=== PATIENT | male | born 1945 | race Caucasian/White ===

== ENCOUNTER 2021-02-27 14:27 | Outpatient (REF) | payer OTHER, MEDICARE, SELFPAY ==
--- NOTE | ~2021-02-27 | XR_ITS ---
EXAMINATION: XR ABDOMEN KUB CLINICAL INDICATION: Kidney stone COMPARISON: None TECHNIQUE: AP view of the abdomen. FINDINGS: There is a 3 mm density projecting over the mid to lower pole the right kidney suggestive of a stone. There is a 0.3 x 1.4 cm linear vertically oriented density which projects over the right L5 transverse process and right side of the sacrum. Atypical appearance of right distal ureteral stone cannot be excluded. No other stone is seen. Bowel gas pattern is normal. There are degenerative changes of the spine and scoliosis. XR/XR KUB IMPRESSION: 3 mm right lower pole renal stone. 0.3 x 1.4 cm vertically oriented density projecting over the right L5 transverse process and sacrum. It is difficult to exclude a right distal ureteral stone.
== END 2021-02-27 14:28 | disposition home or self-care (01) ==
LOC: HO.XRAY 14:27
PROVIDERS: Visit Provider Urology
DX: N20.0 Calculus of kidney (principal)
CPT/HCPCS: 74018

== ENCOUNTER → 2021-03-05 09:49 | Outpatient (BNVA) | payer MEDICARE, OTHER, SELFPAY | PROVIDERS: PCP Internal Medicine | DX: Z13.89 Encounter for screening for other disorder (principal) | CPT/HCPCS: Q3014 ==

== ENCOUNTER 2021-08-14 10:05 | Outpatient (REF) | payer MEDICARE, SELFPAY ==
--- NOTE | ~2021-08-14 | US_ITS ---
EXAMINATION: US RETROPERITONEAL LIMITED (RENAL ONLY) CLINICAL INFORMATION: Calculus of kidney. COMPARISON: XR abdomen KUB 02/27/2021. TECHNIQUE: Real-time imaging of the kidneys. FINDINGS: RIGHT KIDNEY: 11.4 x 6.9 x 5.8 cm (SAG x AP x TRV). The kidney is normal in size, contour, and echogenicity. Renal cortical thickness is normal. No calculi or focal parenchymal lesions. No hydronephrosis. LEFT KIDNEY: 11.2 x 5.2 x 4.5 cm (SAG x AP x TRV). The kidney is normal in size, contour, and echogenicity. Renal cortical thickness is normal. No calculi or focal parenchymal lesions. No hydronephrosis. US/US renal BI IMPRESSION: Normal renal ultrasound study. No nephrolithiasis or hydronephrosis identified..
== END 2021-08-14 10:06 | disposition home or self-care (01) ==
LOC: HO.US 10:05
DX: N20.0 Calculus of kidney (principal)
CPT/HCPCS: 76775

== ENCOUNTER → 2021-09-03 08:51 | Outpatient (BNVA) | payer MEDICARE, SELFPAY | PROVIDERS: PCP Internal Medicine | DX: N20.0 Calculus of kidney (principal) | CPT/HCPCS: 99212 ==

== ENCOUNTER 2022-07-25 15:40 | Outpatient (REF) | payer MEDICARE, SELFPAY ==
--- NOTE | ~2022-07-25 | US_ITS ---
EXAMINATION: US RETROPERITONEAL LIMITED (RENAL ONLY) CLINICAL INFORMATION: Calculus of kidney. COMPARISON: Renal ultrasound 08/14/2021. TECHNIQUE: Real-time imaging of the kidneys. FINDINGS: RIGHT KIDNEY: 10.5 x 5.8 x 4.9 cm (SAG x AP x TRV). The kidney is normal in size, contour, and echogenicity. Renal cortical thickness is normal. No focal parenchymal lesions or hydronephrosis. 3 mm lower pole and 4 mm upper pole nonobstructing calculi. LEFT KIDNEY: 10.3 x 4.6 x 3.8 cm (SAG x AP x TRV). The kidney is normal in size, contour, and echogenicity. Renal cortical thickness is normal. No hydronephrosis. 8 mm simple cyst in the mid to upper pole. No follow-up imaging is recommended. 4 mm upper pole, 4 mm mid kidney, 5 mm lower pole nonobstructing calculi. US/US renal BI IMPRESSION: New/newly apparent bilateral renal calculi compared to prior ultrasound 08/14/2021. No hydronephrosis.
== END 2022-07-25 15:41 | disposition home or self-care (01) ==
LOC: HO.US 15:40
PROVIDERS: PCP Internal Medicine; Visit Provider Nurse Practitioner Family
DX: N20.0 Calculus of kidney (principal)
CPT/HCPCS: 76775

== ENCOUNTER 2022-08-28 09:49 | Outpatient (REF) | payer MEDICARE, SELFPAY ==
--- NOTE | ~2022-08-28 | XR_ITS ---
EXAMINATION: XR ABDOMEN KUB CLINICAL INDICATION: Renal calculus. COMPARISON: 02/27/2021 and ultrasound of 07/25/2022. TECHNIQUE: AP view of the abdomen. FINDINGS: The bowel gas pattern is normal with no evidence of ileus or obstruction. There is scoliosis of the lumbar spine convex left. There is degenerative disc disease seen at the L4-L5 and L5-S1 disc space levels as well as left-sided facet arthropathy at L4-L5 and L5-S1. There is a 5 mm calcification seen overlying the expected location of the lower pole of the right kidney. No other radiopaque calculi are identified on this plain film study. No calculi along the expected paths of the ureters identified. There is again noted to be a curvilinear calcification about the right side of the L5 transverse process which likely represent vascular calcification. Psoas margins intact. XR/XR KUB IMPRESSION: 5 mm calcification seen overlying expected location lower pole of the right kidney. Other calculi are not identified on this plain film study.
== END 2022-08-28 09:50 | disposition home or self-care (01) ==
LOC: HO.XRAY 09:49
PROVIDERS: PCP Internal Medicine; Visit Provider Nurse Practitioner Family
DX: N20.0 Calculus of kidney (principal)
CPT/HCPCS: 74018

== ENCOUNTER → 2022-09-03 09:49 | Outpatient (BNVA) | payer MEDICARE, SELFPAY | PROVIDERS: PCP Internal Medicine; Visit Provider Nurse Practitioner Family ==

== ENCOUNTER 2023-02-27 12:37 | Outpatient (REF) | payer MEDICARE, SELFPAY ==
--- NOTE | ~2023-02-27 | US_ITS ---
EXAMINATION: US RETROPERITONEAL LIMITED (RENAL ONLY) CLINICAL INFORMATION: Calculus of kidney. COMPARISON: Ultrasound retroperitoneal limited 07/25/2022 and 08/14/2021. TECHNIQUE: Real-time imaging of the kidneys. FINDINGS: RIGHT KIDNEY: 12.3 x 5.9 x 5.2 cm (SAG x AP x TRV). The kidney is normal in size, contour, and echogenicity. Renal cortical thickness is normal. No focal parenchymal lesions or hydronephrosis. 5 mm lower pole renal stone, previously 3 mm slightly increased in size. A previously seen upper pole renal stone was not identified. LEFT KIDNEY: 11.8 x 5.2 x 4.9 cm (SAG x AP x TRV). The kidney is normal in size, contour, and echogenicity. Renal cortical thickness is normal. No focal parenchymal lesions or hydronephrosis. Nonobstructing stones measuring up to 6 mm in the upper and lower poles, the largest increased in size from prior, previously 5 mm and 4 mm respectively. US/US renal BI IMPRESSION: Bilateral nonobstructing renal stones measuring up to 6 mm in the left kidney, the largest increased in size from prior. A previously seen right upper pole renal stone was not identified.
--- NOTE | ~2023-02-27 | XR_ITS ---
EXAMINATION: XR ABDOMEN KUB CLINICAL INDICATION: Calculus of kidney 02/27/2023 ultrasound TECHNIQUE: AP view of the abdomen. FINDINGS: 5 mm calculus identified overlying the right renal shadow. Tiny adjacent calculi identified overlying the left lower renal pole. Nonspecific bowel pattern. Solid visceral outlines are partially obscured. Mild left base atelectasis. Levoscoliosis. XR/XR KUB IMPRESSION: Bilateral renal calculi.
== END 2023-02-27 12:38 | disposition home or self-care (01) ==
LOC: HO.US 12:37
PROVIDERS: PCP Internal Medicine; Visit Provider Nurse Practitioner Family
DX: N20.0 Calculus of kidney (principal)
CPT/HCPCS: 74018; 76775

== ENCOUNTER 2023-03-03 14:02 | Outpatient (AMB) | payer MEDICARE, SELFPAY ==
--- NOTE | 2023-03-03 14:06 | MHC.OFFVIS ---
Intake Intake Visit Reasons: 6m/US/KUB(set) Intake Note: Patient is present for follow up nephrolithiasis (x-ray 02/27/23) (imaging 02/27/23) Urology Medications: Vitamin B6 Blood Thinner: aspirin Baggageman Required: No Accompanied by: Self / Same As Patient Allergies No Known Allergies Allergy (Verified 03/04/23 01:26) Medication List - Last Reconciled 03/04/23 by BABITA Alcantar- aspirin 81 mg PO DAILY atorvastatin 40 mg PO DAILY losartan 50 mg PO DAILY primidone 0 mg PO pyridoxine (vitamin B6) 100 mg PO DAILY 90 days HPI HPI Comments History of Present Illness Details Ernie is a 77-year-old male patient of Dr. Wiley. He has a past medical history diverticulitis, hyperlipidemia, hypertension, hearing loss, and nephrolithiasis. He presents to the office today for follow-up of his nephrolithiasis. Recent renal imaging results reviewed with the patient today. Right kidney with no lesions or hydronephrosis. 5mm lower pole renal stone which is slightly increased in size from previous study. A previously seen upper pole renal stone was not identified. Left kidney with no lesions or hydronephrosis. Nonobstructing stones measuring up to 6 mm in the upper and lower poles, the largest increased in size from prior, previously 5 mm and 4 mm respectively. KUB results reviewed with the patient today. 5 mm calculus identified overlying the right renal shadow. Tiny adjacent calculi identified overlying the left lower renal pole. When asked patient denies any bothersome urinary issues or concerns at this time. When asked patient reports compliance with vitamin B6 and plenty of water daily. Discussed surveillance monitoring versus surgical intervention regarding multiple nonobstructing bilateral renal calculi. He discusses having seeked emergency room care at [facility] over the summer at which time he underwent CT abdominal pain he had be experiencing and was told no stones were noted however he does not believe this to be true. Will obtain imaging for further assessment evaluation per patient request. Discussed given recurrent nephrolithiasis 24 hour urine collection and labs could be helpful with stone burden and management of nephrolithiasis however patient declines at this time. He denies any issues with his urination at this time. He otherwise offers no issues or concerns at this time. When asked he denies hematuria, flank pain, fever, and or chills. [facility] Medical History Diverticulitis Hyperlipidemia HTN (hypertension) Hearing loss History of kidney stones Nephrolithiasis Surgical History History of hernia repair Review of Systems Const Reports as per HPI Eyes Reports no additional complaints ENT Reports as per HPI Card Reports as per HPI Resp Reports no additional complaints GI Reports as per HPI Reports as per HPI Musc Reports no additional complaints Neuro Reports no additional complaints Psych Reports no additional complaints Endo Reports no additional complaints Daniel/Lymph Reports no additional complaints Aller/Immun Reports no additional complaints Physical Exam Const General: cooperative, healthy appearing, comfortable, no acute distress, well developed, alert and awake Orientation/consciousness: patient oriented x3 Limitations: no limitations HEENT Head: Yes normal to inspection, Yes normocephalic and Yes atraumatic Ears: hearing grossly normal bilaterally Eyes General: appearance normal, both eyes and all related structures Neck Neck: Yes normal visual inspection and Yes trachea midline Chest Chest palpation & inspection: normal inspection of the chest Resp Effort & Inspection: normal respiratory effort and able to speak in complete sentences Cardio Rate: regular rate GI Inspection: Yes normal to inspection General: Yes no CVA tenderness Back/Spine/Pelvis Back: no CVA tenderness Skin General skin exam: no rashes or lesions noted Neuro General: patient oriented x3 Extrem General: Yes normal to inspection Psych Appearance: grossly normal and well kempt Mental Status: mental status grossly normal Speech and movement: Normal speech and movement present and Clear speech present Affect: normal affect Attitude: cooperative Thought process: Normal thought process present Thought content: Normal thought content present Insight: Fair insight present (Psych) Judgement: Fair judgement present (Psych) Results AMB Urinalysis, Automated UA Leukoctes 0 Laina/uL Last Edit by Jyothi Bashir on 03/03/23 14:46 UA Nitrite Negative Last Edit by Jyothi Bashir on 03/03/23 14:46 UA Urobilinogen 0.2 mg/dL Last Edit by Jyothi Bashir on 03/03/23 14:46 UA Protein 0 mg/dL Last Edit by Jyothi Bashir on 03/03/23 14:46 UA pH 7.0 Last Edit by Jyothi Bashir on 03/03/23 14:46 UA Blood 0 Preston/uL Last Edit by Jyothi Bashir on 03/03/23 14:46 UA Specific [place] 1.015 Last Edit by Jyothi Bashir on 03/03/23 14:46 UA Ketone Negative Last Edit by Jyothi Bashir on 03/03/23 14:46 UA Bilirubin 0 mg/dL Last Edit by Jyothi Bashir on 03/03/23 14:46 UA Glucose 0 mg/dL Last Edit by Jyothi Bashir on 03/03/23 14:46 Results Reviewed Results Reviewed: Laboratory Last Values Urine pH (Auto) 7.0 03/03/23 14:13 Specific [place] (Auto) 1.015 03/03/23 14:13 Urine Protein (Auto) 0 mg/dL 03/03/23 14:13 Glucose (UA)(Auto) 0 mg/dL 03/03/23 14:13 Urine Ketones (Auto) Negative 03/03/23 14:13 Urine Blood (Auto) 0 Preston/uL 03/03/23 14:13 Urine Nitrite (Auto) Negative 03/03/23 14:13 Urine Bilirubin (Auto) 0 mg/dL 03/03/23 14:13 Urine Urobilinogen (Auto) 0.2 mg/dL 03/03/23 14:13 Leukocyte Esterase (Auto) 0 Laina/uL 03/03/23 14:13 Date of Service: 02/27/23 EXAMINATION: US RETROPERITONEAL LIMITED (RENAL ONLY) FINDINGS: RIGHT KIDNEY: 12.3 x 5.9 x 5.2 cm (SAG x AP x TRV). The kidney is normal in size, contour, and echogenicity. Renal cortical thickness is normal. No focal parenchymal lesions or hydronephrosis. 5 mm lower pole renal stone, previously 3 mm slightly increased in size. A previously seen upper pole renal stone was not identified. LEFT KIDNEY: 11.8 x 5.2 x 4.9 cm (SAG x AP x TRV). The kidney is normal in size, contour, and echogenicity. Renal cortical thickness is normal. No focal parenchymal lesions or hydronephrosis. Nonobstructing stones measuring up to 6 mm in the upper and lower poles, the largest increased in size from prior, previously 5 mm and 4 mm respectively. IMPRESSION: Bilateral nonobstructing renal stones measuring up to 6 mm in the left kidney, the largest increased in size from prior. A previously seen right upper pole renal stone was not identified. Date of Service: 02/27/23 EXAMINATION: XR ABDOMEN KUB CLINICAL INDICATION: Calculus of kidney 02/27/2023 ultrasound TECHNIQUE: AP view of the abdomen. FINDINGS: 5 mm calculus identified overlying the right renal shadow. Tiny adjacent calculi identified overlying the left lower renal pole. Nonspecific bowel pattern. Solid visceral outlines are partially obscured. Mild left base atelectasis. Levoscoliosis. IMPRESSION: Bilateral renal calculi. Assessment & Plan Assessment & Plan (1) Nephrolithiasis: Code(s): N20.0 - Calculus of kidney Plan In office urinalysis results reviewed with the patient today; as noted above Recent renal imaging results reviewed with the patient today; as noted above. Recent KUB results reviewed with the patient today; as noted above. Patient denies any bothersome urinary issues or concerns at this time. Patient reports to be happy with current voiding parameters. Discussed and stressed the importance of drinking plenty of water daily. Discussed obtaining metabolic workup with 24 hour urine and labs however patient declines at this time. Will attempt to obtain CT for further assessment evaluation in continuity of care Continue vitamin B6 as discussed and prescribed. Renal ultrasound in 6 months. Follow-up in 6 months with imaging to be completed prior; or sooner with any issues, concerns, and or questions. Orders: Orders AMB Urinalysis Automated 03/03/23 Z13.9 - Encounter for screening, unspecified Patient Instructions: The patient had an opportunity to ask questions regarding the treatment plan. All questions were answered. Physical exam, labs, and imaging were discussed and reviewed in detail. As well as risks, benefits, and discussion of treatment choices. No major barriers to understanding were identified. The patient expressed understanding and agreement with the above treatment plan. The patient was made aware they should contact our office by phone for worsening of their current condition, the appearance of new symptoms, or with any questions or concerns. Compliance is encouraged with any medications and follow up testing that is ordered. It is a privilege to be allowed the opportunity to participate in? your urological care.? Again, if you have any questions or concerns If you have any questions or concerns please do not hesitate to contact me. The office is [phone]. This note is constructed using voice recognition software. While every effort has been made to ensure accuracy tax preparer errors may have been included. Yours sincerely, DAMEON Alcantar Coding Level of Care Code Est Pt Level 3 (60087) Diagnoses Nephrolithiasis N20.0
== END 2023-03-03 14:47 | disposition home or self-care (01) ==
PROVIDERS: PCP Internal Medicine; Visit Provider Nurse Practitioner Family
DX: N20.0 Calculus of kidney (principal)
CPT/HCPCS: 99213

== ENCOUNTER → 2023-03-03 14:02 | Outpatient (BNVA) | payer MEDICARE, SELFPAY | PROVIDERS: PCP Internal Medicine; Visit Provider Nurse Practitioner Family | DX: N20.0 Calculus of kidney (principal) | CPT/HCPCS: 81003; 99212 ==

== ENCOUNTER 2023-08-04 14:02 | Outpatient (REF) | payer MEDICARE, SELFPAY ==
--- NOTE | ~2023-08-04 | US_ITS ---
EXAMINATION: US RETROPERITONEAL LIMITED (RENAL ONLY) CLINICAL INFORMATION: Calculus of kidney. COMPARISON: Ultrasound renal 02/27/2023 and 07/25/2022. TECHNIQUE: Real-time imaging of the kidneys. FINDINGS: RIGHT KIDNEY: 12.0 x 5.6 x 5.1 cm (SAG x AP x TRV). The kidney is normal in size, contour, and echogenicity. Renal cortical thickness is normal. No focal parenchymal lesions or hydronephrosis. 5 mm calculus in the lower pole. 6 mm calculus in the mid kidney. LEFT KIDNEY: 11.1 x 5.0 x 4.0 cm (SAG x AP x TRV). The kidney is normal in size, contour, and echogenicity. Renal cortical thickness is normal. No focal parenchymal lesions or hydronephrosis. 7 mm calculus in the upper pole. US/US renal BI IMPRESSION: Bilateral nonobstructing renal calculi. No hydronephrosis.
== END 2023-08-04 14:03 | disposition home or self-care (01) ==
LOC: HO.US 14:02
PROVIDERS: PCP Internal Medicine; Visit Provider Nurse Practitioner Family
DX: N20.0 Calculus of kidney (principal)
CPT/HCPCS: 76775

== ENCOUNTER 2023-09-02 13:40 | Outpatient (AMB) | payer MEDICARE, SELFPAY ==
--- NOTE | 2023-09-02 14:00 | MHC.OFFVIS ---
Intake Visit Reasons: 6m/US(set) Intake Note: Patient presents today for follow up on: Nephrolithiasis and Ultrasound Results Imaging Complete: 08/04/23 Urology Medications: Vitamin B6 Blood Thinner: aspirin Transfer Specialist Required: No Accompanied by: Self / Same As Patient Allergies No Known Allergies Allergy (Verified 09/02/23 21:42) Medication List - Last Reconciled 09/02/23 by BABITA Alcantar- aspirin 81 mg PO DAILY atorvastatin 40 mg PO DAILY losartan 50 mg PO DAILY primidone 0 mg PO pyridoxine (vitamin B6) 100 mg PO DAILY 90 days HPI Comments Details: Ernie is a 78-year-old male patient of Dr. Wiley. He has a past medical history diverticulitis, hyperlipidemia, hypertension, hearing loss, and nephrolithiasis. He presents to the office today for follow-up of his nephrolithiasis. Recent renal imaging results reviewed with the patient today. Bilateral kidneys with no lesions or hydronephrosis. Right kidney with 5 mm and 6 mm calculus. Left kidney with 7 mm calculus in the upper pole. Patient discusses having seeked emergency room care at [facility] proximally 2 months ago for an episode of gross hematuria at which time he was told he had since passed a kidney stone. When asked he does report intermittent right-sided flank pain however does not find this bothersome. He reports episode of gross hematuria since subsided. In office urinalysis results reviewed with the patient today. No microscopic hematuria noted however pH 5.5. Discussed importance of fluid intake with history of nephrolithiasis. When asked he reports compliance with vitamin B6 as prescribed. He discusses his upcoming travel for a wedding. He otherwise denies urinary urgency, urinary frequency, incontinence, nocturia, dysuria, foul smelling urine, changes to urinary stream, flank pain, fever, and or chills. He is happy with his current voiding parameters. Discussed given recurrent nephrolithiasis 24 hour urine collection and labs could be helpful with stone burden and management of nephrolithiasis however patient declines at this time. He otherwise offers no issues or concerns at this time. [facility] Medical History Diverticulitis Hyperlipidemia HTN (hypertension) Hearing loss History of kidney stones Nephrolithiasis Surgical History History of hernia repair Review of Systems Const Reports as per HPI Eyes Reports no additional complaints ENT Reports as per HPI Card Reports as per HPI Resp Reports no additional complaints GI Reports as per HPI Reports as per HPI Musc Reports no additional complaints Neuro Reports no additional complaints Psych Reports no additional complaints Endo Reports no additional complaints Daniel/Lymph Reports no additional complaints Aller/Immun Reports no additional complaints Physical Exam Const General: cooperative, healthy appearing, comfortable, no acute distress, well developed, alert and awake Orientation/consciousness: patient oriented x3 Limitations: no limitations HEENT Head: Yes normal to inspection, Yes normocephalic and Yes atraumatic Ears: hearing grossly normal bilaterally Eyes General: appearance normal, both eyes and all related structures Neck Neck: Yes normal visual inspection and Yes trachea midline Chest Chest palpation & inspection: normal inspection of the chest Resp Effort & Inspection: normal respiratory effort and able to speak in complete sentences Cardio Rate: regular rate GI Inspection: Yes normal to inspection General: Yes no CVA tenderness Back/Spine/Pelvis Back: no CVA tenderness Skin General skin exam: no rashes or lesions noted Neuro General: patient oriented x3 Extrem General: Yes normal to inspection Psych Appearance: grossly normal and well kempt Mental Status: mental status grossly normal Speech and movement: Normal speech and movement present and Clear speech present Affect: normal affect Attitude: cooperative Thought process: Normal thought process present Thought content: Normal thought content present Insight: Fair insight present (Psych) Judgement: Fair judgement present (Psych) Results AMB Urinalysis, Automated UA Leukoctes 0 Laina/uL Last Edit by [employer] on 09/02/23 14:18 UA Nitrite Negative Last Edit by [employer] on 09/02/23 14:18 UA Urobilinogen 0.2 mg/dL Last Edit by [employer] on 09/02/23 14:18 UA Protein 15 mg/dL Last Edit by [employer] on 09/02/23 14:18 UA pH 5.5 Last Edit by [employer] on 09/02/23 14:18 UA Blood 0 Preston/uL Last Edit by [employer] on 09/02/23 14:18 UA Specific [place] 1.025 Last Edit by [employer] on 09/02/23 14:18 UA Ketone Positive Last Edit by Jyothi Bashir on 09/02/23 14:18 UA Bilirubin 0 mg/dL Last Edit by Jyothi Bashir on 09/02/23 14:18 UA Glucose 0 mg/dL Last Edit by Jyothi Bashir on 09/02/23 14:18 Results Reviewed Results Reviewed: Laboratory Last Values Urine pH (Auto) 5.5 09/02/23 14:06 Specific [place] (Auto) 1.025 09/02/23 14:06 Urine Protein (Auto) 15 mg/dL 09/02/23 14:06 Glucose (UA)(Auto) 0 mg/dL 09/02/23 14:06 Urine Ketones (Auto) Positive 09/02/23 14:06 Urine Blood (Auto) 0 Preston/uL 09/02/23 14:06 Urine Nitrite (Auto) Negative 09/02/23 14:06 Urine Bilirubin (Auto) 0 mg/dL 09/02/23 14:06 Urine Urobilinogen (Auto) 0.2 mg/dL 09/02/23 14:06 Leukocyte Esterase (Auto) 0 Laina/uL 09/02/23 14:06 Date of Service: 08/04/23 EXAMINATION: US RETROPERITONEAL LIMITED (RENAL ONLY) FINDINGS: RIGHT KIDNEY: 12.0 x 5.6 x 5.1 cm (SAG x AP x TRV). The kidney is normal in size, contour, and echogenicity. Renal cortical thickness is normal. No focal parenchymal lesions or hydronephrosis. 5 mm calculus in the lower pole. 6 mm calculus in the mid kidney. LEFT KIDNEY: 11.1 x 5.0 x 4.0 cm (SAG x AP x TRV). The kidney is normal in size, contour, and echogenicity. Renal cortical thickness is normal. No focal parenchymal lesions or hydronephrosis. 7 mm calculus in the upper pole. IMPRESSION: Bilateral nonobstructing renal calculi. No hydronephrosis. Assessment & Plan Assessment & Plan (1) Nephrolithiasis: Code(s): N20.0 - Calculus of kidney Category: Medical (2) Gross hematuria: Code(s): R31.0 - Gross hematuria Category: Medical Plan In office urinalysis results reviewed with the patient today; as noted above. Recent renal imaging results reviewed with the patient today; as noted above. Will attempt to obtain previous ER records from [place] for continuity of care. Discussed at length potential causes of nephrolithiasis. Discussed, educated, and stressed the importance of drinking plenty of water daily. Discussed further workup to include CT KUB versus surveillance monitoring. Continue vitamin B6. Discussed further metabolic workup to include 24 hour urine collection and labs; patient states he will think about this. Will follow-up in 3 months; or sooner with any issues, concerns, and or questions. Orders: Orders AMB Urinalysis Automated Today Z13.9 - Encounter for screening, unspecified Patient Instructions: The patient had an opportunity to ask questions regarding the treatment plan. All questions were answered. Physical exam, labs, and imaging were discussed and reviewed in detail. As well as risks, benefits, and discussion of treatment choices. No major barriers to understanding were identified. The patient expressed understanding and agreement with the above treatment plan. The patient was made aware they should contact our office by phone for worsening of their current condition, the appearance of new symptoms, or with any questions or concerns. Compliance is encouraged with any medications and follow up testing that is ordered. It is a privilege to be allowed the opportunity to participate in? your urological care.? Again, if you have any questions or concerns If you have any questions or concerns please do not hesitate to contact me. The office is [phone]. This note is constructed using voice recognition software. While every effort has been made to ensure accuracy clinical operations specialist errors may have been included. Yours sincerely, DAMEON Alcantar Coding Level of Care Code Est Pt Level 4 (53859) Complex EM visit Add On G2211 Diagnoses Nephrolithiasis N20.0 Gross hematuria R31.0 Time Spent (min) 35
== END 2023-09-02 14:34 | disposition home or self-care (01) ==
PROVIDERS: PCP Internal Medicine; Visit Provider Nurse Practitioner Family
DX: N20.0 Calculus of kidney (principal); R31.0 Gross hematuria; Z13.9 Encounter for screening, unspecified
CPT/HCPCS: 99214; G2211

== ENCOUNTER → 2023-09-02 13:40 | Outpatient (BNVA) | payer MEDICARE, SELFPAY | PROVIDERS: PCP Internal Medicine; Visit Provider Nurse Practitioner Family | DX: N20.0 Calculus of kidney (principal); R31.0 Gross hematuria | CPT/HCPCS: 81003; 99212 ==

== ENCOUNTER 2023-12-02 13:07 | Outpatient (AMB) | payer MEDICARE, SELFPAY ==
--- NOTE | 2023-12-02 13:07 | MHC.OFFVIS ---
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 Wiley. He has a past medical history diverticulitis, hyperlipidemia, hypertension, hearing loss, and nephrolithiasis. He was being followed up on today via telehealth for his history of nephrolithiasis. In discussion with the patient today he reports since his last office visit here approximately 3 months ago he believes he has passed a kidney stone from the right side as shortly after his last follow-up in office he started experiencing right-sided flank pain that has since subsided. He does not recall passing any fragments. He reports pain has since subsided and he has been doing well. He reports to be drinking plenty of water daily and has been compliant with vitamin B6 as prescribed. When asked he currently denies any bothersome urinary issues or concerns. He denies urinary urgency, urinary frequency, incontinence, nocturia, dysuria, foul smelling urine, changes to urinary stream, flank pain, fever, and or chills. He is happy with his current voiding parameters. Discussed given recurrent nephrolithiasis 24 hour urine collection and labs could be helpful with stone burden and management of nephrolithiasis however patient declines at this time. He otherwise offers no issues or concerns at this time. [facility] Medical History Diverticulitis Hyperlipidemia HTN (hypertension) Hearing loss History of kidney stones Nephrolithiasis Surgical History History of hernia repair Review of Systems Const Reports as per HPI Eyes Reports no additional complaints ENT Reports as per HPI Card Reports as per HPI Resp Reports no additional complaints GI Reports as per HPI Reports as per HPI Musc Reports no additional complaints Neuro Reports no additional complaints Psych Reports no additional complaints Endo Reports no additional complaints Daniel/Lymph Reports no additional complaints Aller/Immun Reports no additional complaints Physical Exam Const General: cooperative Orientation/consciousness: patient oriented x3 Resp Effort & Inspection: able to speak in complete sentences Neuro General: patient oriented x3 Psych Speech and movement: Clear speech present Attitude: cooperative Thought process: Normal thought process present Thought content: Normal thought content present Insight: Fair insight present (Psych) Judgement: Fair judgement present (Psych) Telehealth Telehealth Telehealth Platform: Telephone Location of provider rendering services: practice address Location of patient: address on file Patient Identification confirmed using: Name, : Yes Telehealth method: voice only Patient verbally consented to treatment: Yes Patient verbally consented to billing insurance company: Yes Patient informed of any privacy concerns related to visit: Yes Minutes spent on Phone/Video with Pt.: 15 Assessment & Plan Assessment & Plan (1) Nephrolithiasis: Code(s): N20.0 - Calculus of kidney Category: Medical (2) Gross hematuria: Code(s): R31.0 - Gross hematuria Category: Medical Plan Discussed at length potential causes of nephrolithiasis. Discussed, educated, and stressed the importance of drinking plenty of water daily. Will obtain renal ultrasound in 3 months. Continue vitamin B6. Discussed further metabolic workup to include 24 hour urine collection and labs; however patient declines at this time. Patient currently denies any bothersome urinary issues or concerns. He reports be happy with current voiding parameters. Will follow-up in 3 months; or sooner with any issues, concerns, and or questions. Orders: Orders US renal BI 3 Months N20.0 - Calculus of kidney Patient Instructions: The patient had an opportunity to ask questions regarding the treatment plan. All questions were answered. Physical exam, labs, and imaging were discussed and reviewed in detail. As well as risks, benefits, and discussion of treatment choices. No major barriers to understanding were identified. The patient expressed understanding and agreement with the above treatment plan. The patient was made aware they should contact our office by phone for worsening of their current condition, the appearance of new symptoms, or with any questions or concerns. Compliance is encouraged with any medications and follow up testing that is ordered. It is a privilege to be allowed the opportunity to participate in? your urological care.? Again, if you have any questions or concerns If you have any questions or concerns please do not hesitate to contact me. The office is [phone]. This note is constructed using voice recognition software. While every effort has been made to ensure accuracy toolsmith errors may have been included. Yours sincerely, DAMEON Alcantar Coding Level of Care Code Tele Est Pt Level 3 (15584) Diagnoses Nephrolithiasis N20.0 Gross hematuria R31.0
== END 2023-12-02 13:35 | disposition home or self-care (01) ==
LOC: HO.HUSH 13:07
PROVIDERS: PCP Internal Medicine; Visit Provider Nurse Practitioner Family
DX: N20.0 Calculus of kidney (principal); R31.0 Gross hematuria
CPT/HCPCS: 99442

== ENCOUNTER → 2023-12-02 13:07 | Outpatient (BNVA) | payer MEDICARE, SELFPAY | PROVIDERS: PCP Internal Medicine; Visit Provider Nurse Practitioner Family ==

== ENCOUNTER 2024-02-20 14:45 | Outpatient (REF) | payer MEDICARE, SELFPAY | END 2024-02-20 14:46 | disposition home or self-care (01) | LOC: HO.US 14:45 | PROVIDERS: PCP Internal Medicine; Visit Provider Nurse Practitioner Family | DX: N20.0 Calculus of kidney (principal) | CPT/HCPCS: 76775 ==

== ENCOUNTER 2024-03-03 13:10 | Outpatient (AMB) | payer MEDICARE, SELFPAY ==
--- NOTE | 2024-03-03 13:08 | MHC.OFFVIS ---
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 Wiley. He has a past medical history diverticulitis, hyperlipidemia, hypertension, hearing loss, and nephrolithiasis. He was being followed up on today via telehealth for his history of nephrolithiasis. In discussion with the patient today he reports to be doing and feeling well. He denies having had any bothersome urological issues or concerns since his last visit 6 months ago. When asked he reports compliance with vitamin B6 and drinking plenty of water daily. Recent unofficial renal imaging results reviewed with the patient today bilateral kidneys with no hydronephrosis. Bilateral nonobstructing renal calculi measuring 3-4mm. He denies urinary urgency, urinary frequency, incontinence, nocturia, dysuria, foul smelling urine, changes to urinary stream, flank pain, fever, and or chills. He is happy with his current voiding parameters. Discussed given recurrent nephrolithiasis 24 hour urine collection and labs could be helpful with stone burden and management of nephrolithiasis however patient declines at this time. He otherwise offers no issues or concerns at this time. [facility] Medical History Diverticulitis Hyperlipidemia HTN (hypertension) Hearing loss History of kidney stones Nephrolithiasis Surgical History History of hernia repair Review of Systems Const Reports as per HPI Eyes Reports no additional complaints ENT Reports as per HPI Card Reports as per HPI Resp Reports no additional complaints GI Reports as per HPI Reports as per HPI Musc Reports no additional complaints Neuro Reports no additional complaints Psych Reports no additional complaints Endo Reports no additional complaints Daniel/Lymph Reports no additional complaints Aller/Immun Reports no additional complaints Physical Exam Const General: cooperative Orientation/consciousness: patient oriented x3 Resp Effort & Inspection: able to speak in complete sentences Neuro General: patient oriented x3 Psych Speech and movement: Clear speech present Attitude: cooperative Thought process: Normal thought process present Thought content: Normal thought content present Insight: Fair insight present (Psych) Judgement: Fair judgement present (Psych) Telehealth Telehealth Telehealth Platform: [employer] Location of provider rendering services: practice address Location of patient: address on file Patient Identification confirmed using: Name, : Yes Telehealth method: voice only Patient verbally consented to treatment: Yes Patient verbally consented to billing insurance company: Yes Patient informed of any privacy concerns related to visit: Yes Minutes spent on Phone/Video with Pt.: 15 Assessment & Plan Assessment & Plan (1) Nephrolithiasis: Code(s): N20.0 - Calculus of kidney Category: Medical Plan Discussed at length potential causes of nephrolithiasis. Discussed, educated, and stressed the importance of drinking plenty of water daily. Recent unofficial renal imaging results reviewed with the patient today; as noted above. Continue vitamin B6. Discussed further metabolic workup to include 24 hour urine collection and labs; however patient declines at this time. Patient currently denies any bothersome urinary issues or concerns. He reports be happy with current voiding parameters. Will follow-up in 6 months; or sooner with any issues, concerns, and or questions. Orders: Orders US renal BI 6 Months N20.0 - Calculus of kidney Patient Instructions: The patient had an opportunity to ask questions regarding the treatment plan. All questions were answered. Physical exam, labs, and imaging were discussed and reviewed in detail. As well as risks, benefits, and discussion of treatment choices. No major barriers to understanding were identified. The patient expressed understanding and agreement with the above treatment plan. The patient was made aware they should contact our office by phone for worsening of their current condition, the appearance of new symptoms, or with any questions or concerns. Compliance is encouraged with any medications and follow up testing that is ordered. It is a privilege to be allowed the opportunity to participate in? your urological care.? Again, if you have any questions or concerns If you have any questions or concerns please do not hesitate to contact me. The office is [phone]. This note is constructed using voice recognition software. While every effort has been made to ensure accuracy country sales manager errors may have been included. Yours sincerely, DAMEON Alcantar Coding Level of Care Code Tele Est Pt Level 3 (76117) Diagnoses Nephrolithiasis N20.0
== END 2024-03-03 13:35 | disposition home or self-care (01) ==
LOC: HO.HUSH 13:11
PROVIDERS: PCP Internal Medicine; Visit Provider Nurse Practitioner Family
DX: N20.0 Calculus of kidney (principal)
CPT/HCPCS: 99442

== ENCOUNTER → 2024-03-03 13:10 | Outpatient (BNVA) | payer MEDICARE, SELFPAY | PROVIDERS: PCP Internal Medicine; Visit Provider Nurse Practitioner Family ==

== ENCOUNTER 2024-09-06 16:08 | Outpatient (REF) | payer MEDICARE, SELFPAY ==
--- NOTE | ~2024-09-06 | US_ITS ---
EXAMINATION: US KIDNEY BILATERAL HISTORY: N20.0 - Calculus of kidney TECHNIQUE: Real-time grayscale ultrasound imaging of the kidneys was performed and images were reviewed. COMPARISON: Comparison is made with the prior examination dated 02/20/2024. FINDINGS: Right kidney: The right kidney measures 11.1 x 5.7 x 3.4 cm. Renal parenchymal echotexture and thickness are normal. There are no masses. There is no hydronephrosis or renal calculi. Left Kidney: The left kidney measures 11.7 x 4.5 x 4.1 cm. Renal parenchymal echotexture and thickness are normal. There are no masses. There is a nonobstructing 7 x 4 x 4 mm calculus at the upper pole. A cluster of tiny calculi are seen in the mid to lower pole region. There is no hydronephrosis. US/US renal BI IMPRESSION: Left nephrolithiasis as described. Electronically signed by: Cristian Davila MD 09/07/2024 07:02 AM EDT
== END 2024-09-06 16:09 | disposition home or self-care (01) ==
LOC: HO.US 16:08
PROVIDERS: PCP Internal Medicine; Visit Provider Nurse Practitioner Family
DX: N20.0 Calculus of kidney (principal)
CPT/HCPCS: 76775

== ENCOUNTER → 2024-09-06 16:11 | Outpatient (BNV) | payer MEDICARE, SELFPAY | PROVIDERS: PCP Internal Medicine; Visit Provider Radiology Diagnostic Radiology | DX: N20.0 Calculus of kidney (principal) | CPT/HCPCS: 76775 ==

== ENCOUNTER 2024-09-22 09:43 | Outpatient (AMB) | payer MEDICARE, SELFPAY ==
--- NOTE | 2024-09-22 09:53 | A.OFFVIS_ITS ---
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 Wiley. He has a past medical history diverticulitis, hyperlipidemia, hypertension, hearing loss, and nephrolithiasis. He presents to the office today for follow-up of his nephrolithiasis. In discussion with the patient today he reports earlier this year he believes he passed a kidney stone. He was unable to collected for stone analysis. Recent renal imaging results were reviewed. Renal ultrasound 09/22 right kidney with no calculi, lesions, and or hydronephrosis. Left kidney with no renal masses. There is a nonobstructing 7 x 4 x 4 mm calculus in the upper pole and a cluster of tiny calculi seen in the mid to lower pole region. There is no hydronephrosis noted bilaterally. We did discussed potential for passage of stone on right side as previous imaging from 02/21 noted bilateral nephrolithiasis and most recent imaging only noting nonobstructing left renal calculi. He reports he attempts to drink plenty of water daily. He also reports compliance with vitamin B6 as prescribed. He denies urinary urgency, urinary frequency, incontinence, nocturia, dysuria, foul smelling urine, changes to urinary stream, flank pain, fever, and or chills. He is happy with his current voiding parameters. Discussed given recurrent nephrolithiasis 24 hour urine collection and labs could be helpful with stone burden and management of nephrolithiasis however patient declines at this time. He otherwise offers no issues or concerns at this time. [facility] Medical History Diverticulitis Hyperlipidemia HTN (hypertension) Hearing loss History of kidney stones Nephrolithiasis Surgical History History of hernia repair Review of Systems Const Reports as per HPI Eyes Reports no additional complaints ENT Reports as per HPI Card Reports as per HPI Resp Reports no additional complaints GI Reports as per HPI Reports as per HPI Musc Reports no additional complaints Neuro Reports no additional complaints Psych Reports no additional complaints Endo Reports no additional complaints Daniel/Lymph Reports no additional complaints Aller/Immun Reports no additional complaints Physical Exam Const General: cooperative, healthy appearing, comfortable, no acute distress, well developed, alert and awake Orientation/consciousness: patient oriented x3 Limitations: no limitations HEENT Head: Yes normal to inspection, Yes normocephalic and Yes atraumatic Ears: hearing grossly normal bilaterally Eyes General: appearance normal, both eyes and all related structures Neck Neck: Yes normal visual inspection and Yes trachea midline Chest Chest palpation & inspection: normal inspection of the chest Resp Effort & Inspection: normal respiratory effort and able to speak in complete sentences Cardio Rate: regular rate GI Inspection: Yes normal to inspection General: Yes no CVA tenderness Back/Spine/Pelvis Back: no CVA tenderness Skin General skin exam: no rashes or lesions noted Neuro General: patient oriented x3 Extrem General: Yes normal to inspection Psych Appearance: grossly normal and well kempt Mental Status: mental status grossly normal Speech and movement: Normal speech and movement present and Clear speech present Affect: normal affect Attitude: cooperative Thought process: Normal thought process present Thought content: Normal thought content present Insight: Fair insight present (Psych) Judgement: Fair judgement present (Psych) Results AMB Urinalysis, Automated UA Leukoctes 0 Laina/uL Last Edit by ROXANNA Song on 09/22/24 10:07 UA Nitrite Last Edit by ROXANNA Song on 09/22/24 10:07 UA Urobilinogen 0.2 mg/dL Last Edit by ROXANNA Song on 09/22/24 10:0 7 UA Protein 0 mg/dL Last Edit by Jyothi Bashir, [facility] [place] on 09/22/24 10:07 UA pH 6.0 Last Edit by Jyothi Bashir, [facility] [place] on 09/22/24 10:07 UA Blood 0 Preston/uL Last Edit by Jyothi Bashir, [facility] [place] on 09/22/24 10:07 UA Specific [place] 1.020 Last Edit by Jyothi Bashir, [facility] [place] on 09/22/24 10: 07 UA Ketone Last Edit by Jyothi Bashir, [facility] [place] on 09/22/24 10:07 UA Bilirubin 0 mg/dL Last Edit by Jyothi Bashir, [facility] [place] on 09/22/24 10:07 UA Glucose 0 mg/dL Last Edit by Jyothi Bashir, [facility] [place] on 09/22/24 10:07 Results Reviewed Results Reviewed: Laboratory Last Values Urine pH (Auto) 6.0 09/22/24 09:57 Specific [place] (Auto) 1.020 09/22/24 09:57 Urine Protein (Auto) 0 mg/dL 09/22/24 09:57 Glucose (UA)(Auto) 0 mg/dL 09/22/24 09:57 Urine Blood (Auto) 0 Preston/uL 09/22/24 09:57 Urine Bilirubin (Auto) 0 mg/dL 09/22/24 09:57 Urine Urobilinogen (Auto) 0.2 mg/dL 09/22/24 09:57 Leukocyte Esterase (Auto) 0 Laina/uL 09/22/24 09:57 Date of Service: 09/06/24 Procedure(s): US renal BI FINDINGS: Right kidney: The right kidney measures 11.1 x 5.7 x 3.4 cm. Renal parenchymal echotexture and thickness are normal. There are no masses. There is no hydronephrosis or renal calculi. Left Kidney: The left kidney measures 11.7 x 4.5 x 4.1 cm. Renal parenchymal echotexture and thickness are normal. There are no masses. There is a nonobstructing 7 x 4 x 4 mm calculus at the upper pole. A cluster of tiny calculi are seen in the mid to lower pole region. There is no hydronephrosis. IMPRESSION: Left nephrolithiasis as described. Assessment & Plan Assessment & Plan (1) Nephrolithiasis: Code(s): N20.0 - Calculus of kidney Category: Medical Plan In office urinalysis results with the patient today; as noted above. Recent renal imaging results reviewed with the patient today; as noted above. He currently denies any bothersome urinary issues or concerns. He reports be happy with current voiding parameters. Continue vitamin B6. Continue with drinking plenty of water daily. Continue adding 1 oz of lemon juice to water daily. Will obtain renal ultrasound in 6 months. Follow-up in 6 months with imaging to be completed prior; or sooner with any issues, concerns, and or questions. Orders: Orders AMB Urinalysis Automated Today Z13.9 - Encounter for screening, unspecified US renal BI 6 Months N20.0 - Calculus of kidney Medications: Discontinued prednisone Discontinued Reason: Patient Completed Course 20 mg PO DAILY 5 days 5 tabs 0RF naproxen Discontinued Reason: Patient Completed Course 500 mg PO BID 14 days PRN 28 tabs 0RF pain Coding Level of Care Code Est Pt Level 3 (32740) Complex EM visit Add On G2211 Diagnoses Nephrolithiasis N20.0
== END 2024-09-22 10:23 | disposition home or self-care (01) ==
LOC: HO.HUSH 09:44
PROVIDERS: PCP Internal Medicine; Visit Provider Nurse Practitioner Family
DX: N20.0 Calculus of kidney (principal); Z13.9 Encounter for screening, unspecified
CPT/HCPCS: 99213; G2211

== ENCOUNTER → 2024-09-22 09:43 | Outpatient (BNVA) | payer MEDICARE, SELFPAY | PROVIDERS: PCP Internal Medicine; Visit Provider Nurse Practitioner Family | DX: N20.0 Calculus of kidney (principal) | CPT/HCPCS: 81003; 99212 ==

== ENCOUNTER 2025-03-11 13:23 | Outpatient (REF) | payer MEDICARE, SELFPAY ==
--- NOTE | ~2025-03-11 | US_ITS ---
EXAMINATION: US RETROPERITONEAL LIMITED (RENAL ONLY) CLINICAL INFORMATION: N20.0. Calculus of kidney.. COMPARISON: September 06, 2024 TECHNIQUE: Real-time ultrasound kidneys using grayscale technique. FINDINGS: RIGHT KIDNEY: 10 x 5 x 4 cm (SAG x AP x TRV). Volume: 99 cc. Normal echotexture. Renal cortical thickness is normal. No hydronephrosis. No solid or cystic lesion. LEFT KIDNEY: 11 x 5 x 4 cm (SAG x AP x TRV). Volume: 114 cc. Normal echotexture. Renal cortical thickness is normal. No hydronephrosis. No solid or cystic lesion. There is a 1.2 and a 0.5 cm hyperechoic structures in the upper pole and lower pole. US/US renal BI IMPRESSION: Nonobstructing nephrolithiasis, left kidney. No hydronephrosis.. Electronically signed by: Buzz Sparrow MD 03/11/2025 01:48 PM EST
== END 2025-03-11 13:24 | disposition home or self-care (01) ==
LOC: HO.US 13:23
PROVIDERS: PCP Internal Medicine; Visit Provider Nurse Practitioner Family
DX: N20.0 Calculus of kidney (principal)
CPT/HCPCS: 76775

== ENCOUNTER → 2025-03-11 13:26 | Outpatient (BNV) | payer MEDICARE, SELFPAY | PROVIDERS: PCP Internal Medicine; Visit Provider Radiology Diagnostic Radiology | DX: N20.0 Calculus of kidney (principal) | CPT/HCPCS: 76775 ==